=== PATIENT | male | born 1990 | race Caucasian/White ===

== ENCOUNTER 2020-10-07 18:07 | Emergency (ER) | payer SELFPAY ==
[~2020-10-07] VITALS: Ht 185.4 cm; Wt 90.0 kg
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
[2020-10-07 18:48] LABS: BASOPHILS % (AUTO) 1 % (0-1); EOSINOPHILS % (AUTO) 1 % (1-7); LYMPHOCYTES % (AUTO) 24 % (22-44); MEAN CORPUSCULAR HEMOGLOBIN 33.7 pg (27.5-34.5); MEAN CORPUSCULAR HGB CONC 34.4 g/dL (33.2-36.2); MEAN PLATELET VOLUME 7.3 fL (7.4-10.4); MONOCYTES % (AUTO) 6 % (2-9); NEUTROPHILS % (AUTO) 68 % (42-75); PLATELET COUNT 377 x10^3/uL (130-400); RED BLOOD COUNT 5.33 x10^6/uL (4.38-5.82); RED CELL DISTRIBUTION WIDTH 13.4 % (9.4-14.8)
[2020-10-07 18:55] LABS: ALANINE AMINOTRANSFERASE 130 U/L (12-78); ALBUMIN 4.6 g/dL (3.4-5.0); ANION GAP 16 mmol/L (5-15); CHLORIDE 105 mmol/L (98-107); CREATININE 0.78 mg/dL (0.7-1.3)
[2020-10-07 18:58] LABS: ALKALINE PHOSPHATASE 86 U/L (45-117); TOTAL PROTEIN 8.2 g/dL (6.4-8.2)
[2020-10-07 19:05] LABS: SALICYLATE LEVEL < 1.7 mg/dL (2.8-20.0)
[2020-10-07 19:50] VITALS: BP 134/71
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
--- NOTE | 2020-10-07 20:46 | NUR ---
PT REGISTERED INCORRECTLY. PER REGISTRATION ELECTRICAL CAD TECHNICIAN CHARTING WILL BE MERGED.
== END 2020-10-07 20:00 | disposition home or self-care (01) ==
LOC: EDBD → MERGE 18:07 → UNMERGE 18:07 → ED 18:27
DX: F10.229 Alcohol dependence with intoxication, unspecified (principal); G92 Toxic encephalopathy; Y90.0 Blood alcohol level of less than 20 mg/100 ml
CPT/HCPCS: 36415; 80053; 80299; 80320; 80329; 85025; 99283; G0480